=== PATIENT | female | born 1950 | race Caucasian/White ===

== ENCOUNTER → 2018-11-17 | Outpatient (CLI) | payer MEDICARE, BC ==
[~2018-11-17] MED LIST: CELE200C PO; FLUT1BLS3 IH; FURO20TA3 PO; GABA100C PO; GLUC500T11 PO; LOSA25TA25 PO; METF500T17 PO; MONT10TA6 PO; OXYC5CAP2 PO; PANT40TA5 PO; PRAM1TAB5 PO; RANI150T4 PO; SPIR25TA5 PO; TRAZ-137 PO
[2018-11-17 13:21] LABS: ALANINE AMINOTRANSFERASE 29 U/L (12-78); ALBUMIN 3.7 g/dL (3.4-5.0); ANION GAP 4 mmol/L (5-15); CALCIUM 9.1 mg/dL (8.5-10.1); CHLORIDE 100 mmol/L (98-107); CREATININE 1.22 mg/dL (0.55-1.02)
[2018-11-17 13:23] LABS: ALKALINE PHOSPHATASE 88 U/L (45-117); BILIRUBIN,TOTAL 0.4 mg/dL (0.2-1.0); TOTAL PROTEIN 6.7 g/dL (6.4-8.2)
[2018-11-19 06:24] LABS: BASOPHILS # (AUTO) 0.02 x10^3/uL (0-0.1); BASOPHILS % (AUTO) 0 % (0-1); EOSINOPHILS # (AUTO) 0.44 x10^3/uL (0-0.4); EOSINOPHILS % (AUTO) 6 % (1-7); LYMPHOCYTES # (AUTO) 0.94 x10^3/uL (1-3.4); LYMPHOCYTES % (AUTO) 13 % (22-44); MD NO; MEAN CORPUSCULAR HEMOGLOBIN 30.9 pg (27.0-34.8); MEAN CORPUSCULAR HGB CONC 32.4 g/dL (32.4-35.8); MEAN CORPUSCULAR VOLUME 95.4 fL (80-100); MEAN PLATELET VOLUME 8.6 fL (7.4-10.4); MONOCYTES # (AUTO) 0.25 x10^3/uL (0.2-0.8); MONOCYTES % (AUTO) 4 % (2-9); NEUTROPHILS # (AUTO) 5.55 x10^3/uL (1.8-6.8); NEUTROPHILS % (AUTO) 77 % (42-75); PLATELET COUNT 271 x10^3/uL (130-400)
== END | disposition home or self-care (01) ==
LOC: STAR 11:59
PROVIDERS: ATTEND Orthopaedic Surgery
DX: Z01.818 Encounter for other preprocedural examination (principal); M16.11 Unilateral primary osteoarthritis, right hip
CPT/HCPCS: 36415; 80053; 85025; 87081; 87147; 93005

== ENCOUNTER 2018-11-21 08:08 | Inpatient (IN) | payer MEDICARE, BC ==
[~2018-11-21] VITALS: Ht 165.1 cm; Wt 115.0 kg
[~2018-11-21 08:08] MED LIST changes: -CELE200C PO; +EPINEPHRINE 1 MG/ML, 1ML ONE; +KETOROLAC 60 MG/2 ML ONE; -OXYC5CAP2 PO; +SODIUM CHLORIDE 0.9% 50 ML ONE; +TRANEXAMIC ACID 100 MG/ML, 10ML ONE
[2018-11-21] MEDS ORDERED: CELE200C PO (08:49)
[2018-11-21] MEDS ORDERED: LACTATED RINGERS 1,000 ML IV SCH (08:57)
[2018-11-21] MEDS ORDERED: GABAPENTIN 300 MG CAPSULE PO ONE (09:00)
[2018-11-21] MEDS ORDERED: ACETAMINOPHEN 500 MG TABLET PO ONE (09:00)
[2018-11-21] MEDS ORDERED: OxyconTIN ER 10 MG TAB.ER PO ONE (09:00)
[2018-11-21 09:16] LABS: BASOPHILS # (AUTO) 0.04 x10^3/uL (0-0.1); BASOPHILS % (AUTO) 1 % (0-1); EOSINOPHILS # (AUTO) 0.18 x10^3/uL (0-0.4); EOSINOPHILS % (AUTO) 3 % (1-7); LYMPHOCYTES # (AUTO) 0.79 x10^3/uL (1-3.4); LYMPHOCYTES % (AUTO) 13 % (22-44); MD NO; MEAN CORPUSCULAR HEMOGLOBIN 30.2 pg (27.0-34.8); MEAN CORPUSCULAR HGB CONC 32.7 g/dL (32.4-35.8); MEAN CORPUSCULAR VOLUME 92.6 fL (80-100); MEAN PLATELET VOLUME 7.7 fL (7.4-10.4); MONOCYTES # (AUTO) 0.41 x10^3/uL (0.2-0.8); MONOCYTES % (AUTO) 7 % (2-9); NEUTROPHILS # (AUTO) 4.46 x10^3/uL (1.8-6.8); NEUTROPHILS % (AUTO) 76 % (42-75); PLATELET COUNT 241 x10^3/uL (130-400); RED BLOOD COUNT 3.99 x10^6/uL (3.82-5.3); RED CELL DISTRIBUTION WIDTH 14.4 % (9.6-15.2)
[2018-11-21] MEDS ORDERED: MIDAZOLAM 1 MG/ML, 2ML ONE (10:00)
[2018-11-21] MEDS ORDERED: FENTANYL PF 250 MCG/5ML ONE (10:00)
[2018-11-21] MEDS ORDERED: LIDOCAINE 2%, 6 ML JEL.PF.APP MM ONE (10:07)
[2018-11-21] MEDS ORDERED: ROCURONIUM 10 MG/ML,10ML ONE (10:41)
[2018-11-21] MEDS ORDERED: EPHEDRINE 50 MG/ML, 1ML ONE (10:41)
[2018-11-21] MEDS ORDERED: PHENYLEPHRINE 10 MG/ML ONE (10:41)
[2018-11-21] MEDS ORDERED: DEXAMETHASONE 4 MG/ML, 1ML ONE (11:30)
[2018-11-21] MEDS ORDERED: hydrALAzine 20 MG/ML, 1ML IV PRN (11:30)
[2018-11-21] MEDS ORDERED: METOPROLOL 1 MG/ML, 5ML IV PRN (11:30)
[2018-11-21] MEDS ORDERED: MIDAZOLAM 1 MG/ML, 2ML IV PRN (11:30)
[2018-11-21] MEDS ORDERED: OXYcodone 5 MG/5 ML ORAL.SOL UDC PO PRN ×2 (11:30→12:19)
[2018-11-21] MEDS ORDERED: SUCCINYLCHOLINE 20 MG/ML, 10ML ONE (11:30)
[2018-11-21] MEDS ORDERED: HYDROmorphone 2 MG/ML, 1ML IVPush PRN ×2 (11:30→12:30)
[2018-11-21] MEDS ORDERED: MEPERIDINE/PF 25MG/0.5ML IVPush PRN (11:30)
[2018-11-21] MEDS ORDERED: PROMETHAZINE 25 MG/ML, 1ML IV PRN (11:30)
[2018-11-21] MEDS ORDERED: ONDANSETRON 2MG/ML, 2ML ONE (11:30)
[2018-11-21] MEDS ORDERED: CEFAZOLIN 1,000 MG ONE (11:30)
[2018-11-21] MEDS ORDERED: ONDANSETRON 2MG/ML, 2ML IV PRN ×2 (11:30→12:30)
[2018-11-21] MEDS ORDERED: PROPOFOL 10 MG/ML, 20ML ONE (11:30)
[2018-11-21] MEDS ORDERED: ALBUTEROL/IPRATROPIUM 2.5MG/0.5MG, 3 ML NPPB PRN (11:30)
[2018-11-21] MEDS ORDERED: FENTANYL PF 100 MCG/2ML ONE (12:27)
[2018-11-21] MEDS ORDERED: OXYcodone 5 MG/5 ML ORAL.SOL UDC ONE (12:27)
[2018-11-21] MEDS ORDERED: PSYLLIUM PACKET PO PRN (12:30)
[2018-11-21] MEDS ORDERED: DIAZEPAM 5 MG TABLET PO PRN (12:30)
[2018-11-21] MEDS ORDERED: SENNA/DOCUSATE TABLET PO PRN (12:30)
[2018-11-21] MEDS ORDERED: DIPHENHYDRAMINE 25 MG CAPSULE PO PRN (12:30)
[2018-11-21] MEDS ORDERED: POLYETHYLENE GLYCOL 17 GM PACKET PO PRN (12:30)
[2018-11-21] MEDS ORDERED: SCOPOLAMINE PATCH, 1.5MG PATCH.TD72 TD SCH (12:30)
[2018-11-21] MEDS ORDERED: PROMETHAZINE 25 MG/ML, 1ML IM PRN (12:30)
[2018-11-21] MEDS ORDERED: ONDANSETRON 4 MG TABLET PO PRN (12:30)
[2018-11-21] MEDS ORDERED: ALUMINUM/MAG/SIMETHICONE 30 ML UDC PO PRN (12:30)
[2018-11-21] MEDS ORDERED: MAGNESIUM HYDROXIDE 8%, 30ML UDC PO PRN (12:30)
[2018-11-21] MEDS ORDERED: PROMETHAZINE 12.5 MG SUPP PR PRN (12:30)
[2018-11-21] MEDS ORDERED: ZOLPIDEM 5MG TABLET PO PRN (12:30)
[2018-11-21] MEDS ORDERED: OXYcodone IR 5MG TABLET PO PRN (12:30)
[2018-11-21] MEDS ORDERED: BISACODYL 10 MG SUPP PR PRN (12:30)
[2018-11-21] MEDS: FENTANYL PF 100 MCG/2ML IV PRN ×2 (12:33→12:38)
[2018-11-21] MEDS ORDERED: TRANEXAMIC ACID 1,000 MG in SODIUM CHLORIDE 0.9% 100 ML IVPB ONE (13:00)
[2018-11-21 14:30] VITALS: BP 109/60
[2018-11-21] MEDS: KETOROLAC 30 MG/1 ML IV SCH (16:17)
[2018-11-21] MEDS: GABAPENTIN 100 MG CAPSULE PO SCH ×2 (16:18→20:30)
[2018-11-21] MEDS: ACETAMINOPHEN 500 MG TABLET PO SCH ×2 (16:18→22:11)
[2018-11-21] MEDS: PRAMIPEXOLE 0.25MG TABLET PO SCH ×2 (16:18→20:30)
[2018-11-21] MEDS: INSULIN REGULAR 100 UNITS/ML, 3ML VIAL SQ-INSULIN SCH ×3 (16:58→20:30)
[2018-11-21] MEDS: CEFAZOLIN PMX 1GM/50ML 50 ML IVPB SCH (17:54)
[2018-11-21] MEDS: ASPIRIN 81 MG TABLET EC PO SCH (17:55)
[2018-11-21] MEDS: CALCIUM/VITAMIN D3 250-125 TABLET PO SCH (17:55)
[2018-11-21] MEDS: FERROUS SULFATE 325 MG TABLET PO SCH (17:55)
[2018-11-21] MEDS: SODIUM CHLORIDE 0.9% 1,000 ML IV SCH ×2 (17:55→18:01)
[2018-11-21] MEDS: metFORMIN 500 MG TABLET PO SCH (20:31)
[2018-11-21] MEDS: DOCUSATE 100 MG CAPSULE PO SCH (20:31)
[2018-11-21] MEDS ORDERED: TRAZODONE 100MG TABLET PO SCH (21:00)
[2018-11-21 22:37] VITALS: BP 93/52
[2018-11-22] MEDS: KETOROLAC 30 MG/1 ML IV SCH ×2 (00:18→08:02)
[2018-11-22] MEDS: SODIUM CHLORIDE 0.9% 1,000 ML IV SCH ×2 (01:38→08:24)
[2018-11-22] MEDS: CEFAZOLIN PMX 1GM/50ML 50 ML IVPB SCH (01:38)
[2018-11-22 03:54] VITALS: BP 115/55
[2018-11-22] MEDS: ACETAMINOPHEN 500 MG TABLET PO SCH ×2 (04:53→10:23)
[2018-11-22] MEDS: PRAMIPEXOLE 0.25MG TABLET PO SCH (05:28)
[2018-11-22] MEDS ORDERED: DEXAMETHASONE 4 MG/ML, 1ML IVPush ONE (06:00)
[2018-11-22] MEDS ORDERED: PANTOPROZOLE 40MG TABLET PO SCH (06:00)
[2018-11-22] MEDS: INSULIN REGULAR 100 UNITS/ML, 3ML VIAL SQ-INSULIN SCH (07:00)
[2018-11-22 07:54] VITALS: BP 84/51
[2018-11-22] MEDS: ASPIRIN 81 MG TABLET EC PO SCH (08:01)
[2018-11-22] MEDS: CALCIUM/VITAMIN D3 250-125 TABLET PO SCH (08:02)
[2018-11-22] MEDS ORDERED: MULTIVITAMINS/MINERALS TABLET PO SCH (09:00)
[2018-11-22] MEDS ORDERED: SPIRONOLACTONE 50 MG TABLET PO SCH (09:00)
[2018-11-22] MEDS ORDERED: MONTELUKAST 10 MG TABLET PO SCH (09:00)
[2018-11-22] MEDS ORDERED: ASCORBIC ACID 500 MG TABLET PO SCH (09:00)
[2018-11-22] MEDS ORDERED: FUROSEMIDE 40 MG TABLET PO SCH (09:00)
[2018-11-22] MEDS ORDERED: LOSARTAN 25MG TABLET PO SCH (09:00)
[2018-11-22] MEDS: FERROUS SULFATE 325 MG TABLET PO SCH (09:17)
[2018-11-22] MEDS: GABAPENTIN 100 MG CAPSULE PO SCH (09:17)
[2018-11-22] MEDS: DOCUSATE 100 MG CAPSULE PO SCH (09:17)
[2018-11-22] MEDS: metFORMIN 500 MG TABLET PO SCH (09:18)
[2018-11-22] MEDS ORDERED: OXYC5CAP2 PO (10:57)
[2018-11-22] MEDS ORDERED: ASPIRIN 81 MG TABLET EC PO SCH (18:00)
== END 2018-11-22 10:55 | disposition home or self-care (01) | DRG 469 ==
LOC: ORIP 08:08 → 4NOR 14:25 → DCLOUNGE 11-22 10:40
PROVIDERS: ADMIT Orthopaedic Surgery; ATTEND Orthopaedic Surgery
PROC: 0SR906A Replacement of Right Hip Joint with Oxidized Zirconium on Polyethylene Synthetic Substitute, Uncemented, Open Approach (ICD-10-PCS; principal; 2018-11-21 11:30)
DX: M16.11 Unilateral primary osteoarthritis, right hip (principal); E43 Unspecified severe protein-calorie malnutrition; R71.0 Precipitous drop in hematocrit; Z68.41 Body mass index [BMI] 40.0-44.9, adult; I10 Essential (primary) hypertension; K21.9 Gastro-esophageal reflux disease without esophagitis; G47.33 Obstructive sleep apnea (adult) (pediatric); J45.909 Unspecified asthma, uncomplicated; E66.01 Morbid (severe) obesity due to excess calories; E11.40 Type 2 diabetes mellitus with diabetic neuropathy, unspecified; Z79.899 Other long term (current) drug therapy
CPT/HCPCS: 36415; 72170; 82962; 85014; 85018; 85025; 86850; 86900; C1713; G0378; J0171; J0690; J1100; J1815; J1885; J2250; J2405; J2704; J3010; C1776; J0330; J2370; J7030; J7120